=== PATIENT | male | born 1960 | race Two or more races ===

== ENCOUNTER 2018-07-05 10:18 | Outpatient (CLI) | payer OTHER | END 2018-07-05 10:25 | disposition home or self-care (01) | LOC: SONOGRAMA 10:18 | DX: R35.0 Frequency of micturition (principal) ==

== ENCOUNTER 2022-10-14 20:06 | Emergency (ER) | payer OTHER ==
[~2022-10-14] VITALS: Ht 167.6 cm; Wt 68.0 kg
== END 2022-10-14 22:38 | disposition home or self-care (01) ==
LOC: ER 20:06
DX: N41.8 Other inflammatory diseases of prostate (principal)

== ENCOUNTER 2022-10-18 09:46 | Emergency (ER) | payer OTHER ==
[~2022-10-18] VITALS: Ht 165.1 cm; Wt 65.3 kg
== END 2022-10-18 11:23 | disposition home or self-care (01) ==
LOC: ER 09:46
DX: S76.911A Strain of unspecified muscles, fascia and tendons at thigh level, right thigh, initial encounter (principal); X58.XXXA Exposure to other specified factors, initial encounter; Y93.9 Activity, unspecified; Y92.9 Unspecified place or not applicable; Y99.9 Unspecified external cause status